=== PATIENT | male | born 1965 | race Two or more races ===

== ENCOUNTER 2020-02-10 04:07 | Emergency (ER) | payer OTHER ==
[2020-02-10 04:15] VITALS: BMI 28.1
[2020-02-10] MEDS ORDERED: SODIUM CHLORIDE 1,000 ML IV STA (04:24)
--- NOTE | 2020-02-10 04:24 | PDOC ---
History of Present Illness - General Chief Complaint: Weakness Stated Complaint: LOW BLOOD PRESSURE Time Seen by Provider: 02/10/20 04:12 History Source: Patient Exam Limitations: No Limitations - History of Present Illness Initial Comments: 54-year-old male with no past medical history presented to the emergency department for a pre-syncopal episode occurring just prior to arrival. Patient reported he felt very lightheaded, became diaphoretic, called EMS. EMS reported that he was hypotensive in the field, given 1L of normal saline with improvement of blood pressure back to normal. Patient reported a couple of days of a dry cough. Patient denied chest pain, shortness of breath,Palpitations, fever, Nausea, vomiting, diarrhea, abdominal pain, back pain. Patient denies illicit drug use, alcohol use. ROS General: denied fever, chills, generalized weakness. HEENT: denied sore throat, rhinorrhea, ear pain. Cardiovascular: admitted to presyncope, diaphoresis. denied chest pain, palpitations, syncope. Respiratory: admitted to cough. denied shortness of breath, sputum production, hemoptysis. Gastrointestinal: denied abdominal pain, nausea, vomiting, diarrhea, constipatio n, blood in stool. Genitourinary: denied dysuria, increased urinary frequency, hematuria, urinary incontinence, flank pain. Back: denied back pain. Musculoskeletal: denied joint pain, muscle pain, joint swelling. Neurological: denied headache, dizziness, numbness, tingling, weakness. Integumentary: denied rash, laceration, abrasion. Hematologic/Lymphatic: denied bruising or bleeding. PE Constitutional: Well-nourished, Well-developed, appearing stated age. HEENT: head is normocephalic, atraumatic. EOMI. PERRLA. Neck: supple. Full ROM. Cardiovascular: regular heart rhythm. Normal S1 and S2. no murmurs. no pericardial friction rub. Respiratory: clear to auscultation bilaterally. no crackles, rhonchi or wheezing. no stridor. Gastrointestinal: soft, flat, nontender. normal bowel sounds. no rebound, guarding, or masses. Extremities: peripheral pulses intact and equal. no lower extremity edema noted. Neurological: CN 2-12 grossly intact. moves all four extremities. Psych: awake, alert, oriented x3. follows commands. answers questions appropriately. Past History - Past Medical History Allergies/Adverse Reactions: Allergies Allergy/AdvReac Type Severity Reaction Status Date / Time No Known Allergies Allergy Verified 02/10/20 04:10 Home Medications: Ambulatory Orders Metformin HCl [Glucophage] 500 mg PO DAILY #30 tablet 02/10/20 - Psycho Social/Smoking Cessation Hx Smoking History: Never smoked Have you smoked in the past 12 months: No Information on smoking cessation initiated: No Hx Alcohol Use: No Drug/Substance Use Hx: No *Physical Exam - Vital Signs Last Vital Signs Temp Pulse Resp BP Pulse Ox 98.4 F 80 20 129/83 100 02/10/20 04:11 02/10/20 04:11 02/10/20 04:11 02/10/20 04:11 02/10/20 04:11 ED Treatment Course - LABORATORY CBC & Chemistry Diagram: 02/10/20 04:42 02/10/20 04:42 Medical Decision Making - Medical Decision Making 54 year old male with above PMH presented to ED for evaluation of pre-syncopal episode occurring just [employer], associated with diaphoresis, also c/o 2-3 day of dry cough. Initial Vital Signs Temp Pulse Resp BP Pulse Ox 98.4 F 80 20 129/83 100 02/10/20 04:11 02/10/20 04:11 02/10/20 04:11 02/10/20 04:11 02/10/20 04:11 Afebrile. No tachycardia. No tachypnea. No hypotension. No hypoxia on room air. Pt was given normal saline bolus 1000 cc en route via EMS. Pt reported resolution of symptoms. EKG performed at 0416: rate 74, regular rhythm, normal axis, normal intervals, no acute ST changes. Labs ordered: CBC, CMP, cardiac profile Imaging ordered: CXR Medications ordered: normal saline bolus 1000 cc once 02/10/20 05:40 CXR my read: no infiltrate. no cardiomegaly. no pulmonary vascular congestion. sharp costophrenic angles. -Pending official report Laboratory Last Values WBC 7.3 K/mm3 (4.0-10.0) 02/10/20 04:42 RBC 5.02 M/mm3 (4.00-5.60) 02/10/20 04:42 Hgb 15.3 GM/dL (11.7-16.9) 02/10/20 04:42 Hct 45.4 % (35.4-49) 02/10/20 04:42 MCV 90.3 fl (80-96) 02/10/20 04:42 MCH 30.5 pg (25.7-33.7) 02/10/20 04:42 MCHC 33.8 g/dl (32.0-35.9) 02/10/20 04:42 RDW 13.3 % (11.9-15.9) 02/10/20 04:42 Plt Count 157 K/MM3 (134-434) 02/10/20 04:42 MPV 8.9 fl (7.5-11.1) 02/10/20 04:42 Sodium 140 mmol/L (136-145) 02/10/20 04:42 Potassium 4.6 mmol/L (3.5-5.1) 02/10/20 04:42 Chloride 106 mmol/L (98-107) 02/10/20 04:42 Carbon Dioxide 27 mmol/L (21-32) 02/10/20 04:42 Anion Gap 7 MMOL/L (8-16) L 02/10/20 04:42 BUN 15.1 mg/dL (7-18) 02/10/20 04:42 Creatinine 1.6 mg/dL (0.55-1.3) H 02/10/20 04:42 Est GFR (CKD-EPI)AfAm 55.78 02/10/20 04:42 Est GFR (CKD-EPI)NonAf 48.13 02/10/20 04:42 Random Glucose 169 mg/dL (74-106) H 02/10/20 04:42 Calcium 8.3 mg/dL (8.5-10.1) L 02/10/20 04:42 Total Bilirubin 0.4 mg/dL (0.2-1) 02/10/20 04:42 AST 32 U/L (15-37) 02/10/20 04:42 ALT 45 U/L (13-61) 02/10/20 04:42 Alkaline Phosphatase 54 U/L (45-117) 02/10/20 04:42 Creatine Kinase 158 U/L (26-308) 02/10/20 04:42 Troponin I < 0.02 ng/ml (0.00-0.05) 02/10/20 04:42 Total Protein 7.2 g/dl (6.4-8.2) 02/10/20 04:42 Albumin 3.6 g/dl (3.4-5.0) 02/10/20 04:42 TSH 0.96 uIU/ml (0.358-3.74) 02/10/20 04:42 No leukocytosis. No anemia. Mild WILBERT, consistent with volume depletion, pt given IV fluids. Troponin undetectable. TSH wnl. Results explained to patient. Pt to be discharged, advise to F/U with PCP, given referral for clinic system. Pt reported no recurrence of symptoms Discharge - Discharge Information Problems reviewed: Yes Clinical Impression/Diagnosis: Pre-syncope Condition: Improved Disposition: HOME - Admission No - Additional Discharge Information Prescriptions: Metformin HCl [Glucophage] 500 mg PO DAILY #30 tablet - Follow up/Referral Referrals: Terrence Patel MD [Staff Physician] - Bernie Grullon MD [Staff Physician] - - Patient Discharge Instructions Patient Printed Discharge Instructions: DI for Syncope in Adults (Fainting) Additional Instructions: Follow up with your primary care doctor within 3 days regarding your ER visit. Your care is not complete until you follow up. Bring all paperwork given to you today to your appointment. I have provided you with a referral should you need one. Drink lots of fluids - gatorade/pedialyte - to prevent dehydration. Get 8 hours of sleep a night. Return to the ER for increasing pain, chest pain, shortness of breath, lightheadedness, intractable vomiting, fever, severe back or abdominal pain, or any other new, worsening or concerning symptoms. Dani un seguimiento con vargas mdico de atencin primaria dentro de los 3 brody con respecto a vargas visita de Urgencias. Vargas atencin no est completa hasta que usted dani un seguimiento. Lleve todo el papeleo que se le da hoy a vargas nithya. Le he proporcionado quinn referencia en jerald de que necesite cristhian. Beban muchos lquidos - gatorada/pedialyte - para prevenir la deshidratacin. Duerme 8 horas por noche. Volver a urgencia para aumentar el dolor, dolor en el pecho, dificultad para respirar, aturdimiento, vmitos intratables, fiebre, dolor intenso de espalda o abdominal, o cualquier otro sntoma nuevo, que empeore o en relacin con los sntomas. - Post Discharge Activity Work/Back to School Note: Back to Work
--- NOTE | 2020-02-10 04:35 | PDOC ---
Attending Attestation - Resident Resident Name: Kathi Obrien - ED Attending Attestation I have performed the following: I have examined & evaluated the patient, The case was reviewed & discussed with the resident, I agree w/resident's findings & plan - HPI HPI: 02/10/20 04:36 Pt comes for low blood pressure. He was slumped over a couch at home. He has no PMHx other than elevated glc, for which he exercises and does diet control. He has no cough or cold or flu like sympmtoms. He has not had the flu shot this year. He has no covid-19 contacts Pt lives with and 2 daughters Pt has no complaints. States that he went to the bathroom and felt lightheadedness. - Physicial Exam PE: 02/10/20 04:36 Agree with resident exam - Medical Decision Making 02/10/20 04:39 Pt doesn't have vasocvagal signs. 02/10/20 20:00 Pt looks great; CXR WNL; pt has poor control od DM; we will start glucophage lowest dose Labs ok Pt's vitals good. He was hydrated and he is safe for d/c Discharge - Discharge Information Problems reviewed: Yes Clinical Impression/Diagnosis: Pre-syncope Condition: Improved Disposition: HOME - Additional Discharge Information Prescriptions: Metformin HCl [Glucophage] 500 mg PO DAILY #30 tablet - Follow up/Referral Referrals: Terrence Patel MD [Staff Physician] - Bernie Grullon MD [Staff Physician] - - Patient Discharge Instructions Patient Printed Discharge Instructions: DI for Syncope in Adults (Fainting) Additional Instructions: Follow up with your primary care doctor within 3 days regarding your ER visit. Your care is not complete until you follow up. Bring all paperwork given to you today to your appointment. I have provided you with a referral should you need one. Drink lots of fluids - gatorade/pedialyte - to prevent dehydration. Get 8 hours of sleep a night. Return to the ER for increasing pain, chest pain, shortness of breath, lighthead edness, intractable vomiting, fever, severe back or abdominal pain, or any other new, worsening or concerning symptoms. Dani un seguimiento con vargas mdico de atencin primaria dentro de los 3 brody con respecto a vargas visita de Urgencias. Vargas atencin no est completa hasta que usted dani un seguimiento. Lleve todo el papeleo que se le da hoy a vargas nithya. Le he proporcionado quinn referencia en jerald de que necesite cristhian. Beban muchos lquidos - gatorada/pedialyte - para prevenir la deshidratacin. Duerme 8 horas por noche. Volver a urgencia para aumentar el dolor, dolor en el pecho, dificultad para respirar, aturdimiento, vmitos intratables, fiebre, dolor intenso de espalda o abdominal, o cualquier otro sntoma nuevo, que empeore o en relacin con los sntomas. - Post Discharge Activity Work/Back to School Note: Back to Work
[2020-02-10 04:52] LABS: HEMATOCRIT 45.4 % (35.4-49); HEMOGLOBIN 15.3 GM/dL (11.7-16.9); MCH 30.5 pg (25.7-33.7); MCHC 33.8 g/dl (32.0-35.9); MEAN CELL VOLUME 90.3 fl (80-96); MEAN PLT VOLUME 8.9 fl (7.5-11.1); PLATELET COUNT 157 K/MM3 (134-434); RBC 5.02 M/mm3 (4.00-5.60); RDW 13.3 % (11.9-15.9); WHITE BLOOD COUNT 7.3 K/mm3 (4.0-10.0)
[2020-02-10 05:23] LABS: ALBUMIN 3.6 g/dl (3.4-5.0); ALK PHOS 54 U/L (45-117); ANION GAP 7 MMOL/L (8-16); BILIRUBIN,TOTAL 0.4 mg/dL (0.2-1); BLOOD UREA NITROGEN 15.1 mg/dL (7-18); CALCIUM 8.3 mg/dL (8.5-10.1); CHLORIDE 106 mmol/L (98-107); CO2 27 mmol/L (21-32); CREATININE 1.6 mg/dL (0.55-1.3); GLUCOSE,RANDOM 169 mg/dL (74-106); POTASSIUM 4.6 mmol/L (3.5-5.1); SGOT/AST 32 U/L (15-37); SGPT/ALT 45 U/L (13-61); SODIUM 140 mmol/L (136-145); TOT PROT 7.2 g/dl (6.4-8.2)
[2020-02-10 05:52] VITALS: BP 110/78; PULSE 79; TEMP 98.1
--- NOTE | 2020-02-11 14:23 | EKG ---
Test Reason : Blood Pressure : / mmHG Vent. Rate : 074 BPM Atrial Rate : 074 BPM P-R Int : 126 ms QRS Dur : 080 ms QT Int : 384 ms P-R-T Axes : 052 063 019 degrees QTc Int : 426 ms NORMAL SINUS RHYTHM POSSIBLE LEFT ATRIAL ENLARGEMENT BORDERLINE ECG NO PREVIOUS ECGS AVAILABLE Confirmed by BARRY CASSIDY MD ([id number]) on 02/11/2020 2:23:10 PM Referred By: Confirmed By:BARRY CASSIDY MD
== END 2020-02-10 05:50 | disposition home or self-care (01) ==
LOC: JER 04:07
DX: R55 Syncope and collapse (principal)
CPT/HCPCS: 36415; 71045-TC-FY; 80053; 82550; 82553; 84443; 84484; 85027; 93005; 93010; 99285-25; J7030